=== PATIENT | female | born 1940 | race Hispanic/Latino ===

== ENCOUNTER 2017-09-18 15:52 | Outpatient (CLI) | payer MEDICARE, MEDICAID ==
--- NOTE | 2017-09-18 18:54 | RAD ---
CHEST TWO VIEW 09/18/17 HISTORY: Exertional dyspnea. COMPARISON: None FINDINGS: There is mild cephalization of the pulmonary vasculature. Mild prominence of the pulmonary arteries. No pneumothorax or large effusion. The bones are osteopenic. No compression fracture is appreciated . Heart size upper limits of normal with increased mediastinal fat. IMPRESSION: 1. Mild cardiomegaly with pulmonary venous congestion. 2. Dilatation of the pulmonary arteries suggests pulmonary arterial hypertension. 3. Increased mediastinal fat. POS: [facility]
[2017-09-19 20:47] LABS: ALT (SGPT) 17 U/L (8-55); AST (SGOT) 20 U/L (5-34); Albumin 4.1 g/dL (3.4-4.8); Alkaline Phosphatase 173 U/L (40-150); Anion Gap 15 mmol/L (10-20); BUN (Urea Nitrogen) 18 mg/dL (9.8-20.1); Bilirubin, Total 0.3 mg/dL (0.2-1.2); Calc. Creatinine Clearance 0 mL/min (70-130); Calcium 9.6 mg/dL (7.8-10.44); Carbon Dioxide 24 mmol/L (23-31); Chloride 106 mmol/L (98-107); Estimated GFR-MDRD 79; Globulin 3.5 g/dL (2.4-3.5); Glucose 84 mg/dL (83-110); Potassium 4.1 mmol/L (3.5-5.1); Protein, Total 7.6 g/dL (6.0-8.3); Sodium 141 mmol/L (136-145)
[2017-09-19 20:48] LABS: Thyroid Stimulating Hormone 0.802 uIU/mL (0.35-4.94); Vitamin D, 25 Hydroxy 12.1 ng/ml (> 30.0)
[2017-09-19 20:54] LABS: #Lymphocytes 2.4 thou/uL (1.20-3.40); #Monocytes 0.4 thou/uL (0.11-0.59); #Neutrophils 3.5 thou/uL (1.40-6.50); %Basophils 0.3 % (0.0-1.0); %Eosinophils 0.6 % (0.0-10.0); %Lymphocytes 38.1 % (21.0-51.0); %Monocytes 5.7 % (0.0-10.0); %Neutrophils 55.3 % (42.0-75.0); Hemoglobin 13.3 g/dL (12.0-16.0); Mean Corpuscular HGB CONC 33.4 g/dL (32.0-36.0); Mean Corpuscular Hemoglobin 30.7 pg (27.0-31.0); Mean Corpuscular Volume 91.8 fl (81.0-99.0); Mean Platelet Volume 7.7 fL (7.4-10.4); Platelet Count 223 thou/uL (130-400); Red Blood Cell (RBC) Count 4.32 mill/uL (4.20-5.40); White Blood Cell (WBC) Count 6.3 thou/uL (4.8-10.8)
[2017-09-19 21:14] LABS: Hemoglobin A1c 5.2 % (4.0-6.0)
== END 2017-09-18 15:53 | disposition home or self-care (01) ==
LOC: MADLABBHPM 15:52
PROVIDERS: ATTEND Family Medicine
DX: R06.09 Other forms of dyspnea (principal); M19.90 Unspecified osteoarthritis, unspecified site; I51.7 Cardiomegaly; I28.1 Aneurysm of pulmonary artery; E65 Localized adiposity; R53.83 Other fatigue; R09.89 Other specified symptoms and signs involving the circulatory and respiratory systems
CPT/HCPCS: 36415; 71020; 80053; 82306; 83036; 84443; 85025; 93005; 93010

== ENCOUNTER 2018-04-19 09:27 | Outpatient (CLI) | payer MEDICARE, MEDICAID ==
--- NOTE | 2018-04-19 10:56 | RAD ---
CHEST 2 VIEWS: Date: 04/19/18 COMPARISON: 09/18/17. HISTORY: Recurrent cough. FINDINGS: Atherosclerosis of aorta. Normal cardiac silhouette. Pulmonary vessels are within normal limits. Cost ophrenic angles are clear. Chronic changes in lung parenchyma. No consolidation or mass. No pneumotho rax or osseous abnormalities. IMPRESSION: 1. Atherosclerosis. 2. No acute cardiopulmonary process. POS: [facility]
--- NOTE | 2018-04-19 11:02 | RAD ---
LUMBAR SPINE 3 VIEWS: Date: 04/19/18 HISTORY: Low back pain. COMPARISON: None. FINDINGS: There are five lumbar-type vertebral bodies. There is diffuse bone demineralization. Lumbar spine miguel tebral body height is maintained. No fracture. No spondylolisthesis or spondylolysis. Mild degenerati ve changes of posterior elements along the right aspect are noted at L4-L5 and L5-S1. IMPRESSION: Mild degenerative changes. No evidence of fracture. POS: [facility]
--- NOTE | 2018-04-19 11:03 | RAD ---
RIGHT HIP 2 VIEWS: Date: 04/19/18 HISTORY: Joint pain. COMPARISON: None. FINDINGS: Joint space preserved. No evidence of fracture or dislocation. Right hip is unremarkable. IMPRESSION: No significant degenerative change. POS: [facility]
--- NOTE | 2018-04-19 11:15 | RAD ---
LEFT HIP TWO VIEWS: HISTORY: Left hip pain. COMPARISON: None. FINDINGS: Two views of the left hip show no evidence of acute fracture or dislocation. No degenerative change is seen. An injection granuloma is seen in the left gluteal region. IMPRESSION: No evidence of acute osseous abnormality. POS: [facility]
== END 2018-04-19 09:28 ==
LOC: MADLABBHPM 09:27
PROVIDERS: ATTEND Family Medicine
DX: M25.50 Pain in unspecified joint (principal)
CPT/HCPCS: 36415; 71046; 72100; 83520; 85652; 86200

== ENCOUNTER 2018-10-03 09:12 | Outpatient (CLI) | payer MEDICARE, MEDICAID ==
--- NOTE | 2018-10-03 09:52 | RAD ---
TWO VIEWS OF THE LEFT HAND: DATE: 10/03/2018. PROVIDED CLINICAL HISTORY: Arthritis. FINDINGS: There is no evidence for a fracture or other acute osseous abnormality. Alignment appears anatomic. Joint spaces appear preserved. No erosive changes are seen. Bone mineralization appears normal. T he soft tissues appear radiographically unremarkable. IMPRESSION: No evidence for an acute osseous abnormality or significant arthropathy. POS: [facility]
--- NOTE | 2018-10-03 10:01 | RAD ---
TWO VIEWS RIGHT HAND: Date: 10-03-18 Provided Clinical History: Arthritis. FINDINGS: There is no evidence for fracture or other acute osseous abnormality. There is mild index digit DIP j oint space loss and osteophyte formation. Joint spaces appear otherwise maintained. No erosive change s are seen. Bone mineralization appears normal. The soft tissues appear radiographically unremarkable . IMPRESSION: Minimal degenerative change. POS: [facility]
[2018-10-03 17:35] LABS: HBSAg Index 0.21 S/CO (0-0.99); Hep B Core Total Ab Non-Reactive (NonReactive); Hep B Core Total Index 0.15 S/CO (0-0.79); Hep B Surf Ag Non-Reactive S/CO (NonReactive); Hep C IgG Ab Non-Reactive (NonReactive)
== END 2018-10-03 09:13 | disposition home or self-care (01) ==
LOC: MADLAB 09:12
DX: M19.90 Unspecified osteoarthritis, unspecified site (principal)
CPT/HCPCS: 36415; 85652; 86140; 86704; 86803; 87340

== ENCOUNTER 2019-02-26 20:37 | Emergency (ER) | payer MEDICARE, MEDICAID ==
[2019-02-26] MEDS ORDERED: Sodium Chloride 0.9% 1,000 ML ONE ×2 (21:10→22:25)
[2019-02-26] MEDS ORDERED: Acetaminophen 500 MG TAB ONE (21:10)
[2019-02-26 21:16] LABS: #Basophils 0.1 thou/uL (0.0-0.2); #Lymphocytes 0.7 thou/uL (1.20-3.40); #Monocytes 0.5 thou/uL (0.11-0.59); #Neutrophils 10.8 thou/uL (1.40-6.50); %Basophils 0.5 % (0.0-1.0); %Eosinophils 0.1 % (0.0-10.0); %Lymphocytes 5.7 % (21.0-51.0); %Monocytes 4.3 % (0.0-10.0); %Neutrophils 89.5 % (42.0-75.0); Hemoglobin 11.8 g/dL (12.0-16.0); Mean Corpuscular HGB CONC 32.9 g/dL (32.0-36.0); Mean Corpuscular Hemoglobin 29.5 pg (27.0-31.0); Mean Corpuscular Volume 89.9 fL (78.0-98.0); Mean Platelet Volume 6.2 fL (7.4-10.4); Platelet Count 240 thou/uL (130-400); RBC Distribution Width 13.8 % (11.5-14.5); Red Blood Cell (RBC) Count 3.99 mill/uL (4.20-5.40); White Blood Cell (WBC) Count 12.1 thou/uL (4.8-10.8)
[2019-02-26 21:22] LABS: Bilirubin Small (Negative); Blood, Urine Moderate (Negative); Glucose, Urine (Dipstick) Negative (Negative); Leukocyte Negative (Negative); Nitrite Negative (Negative); Protein, Urine (Dipstick) 30 mg/dL (Neg-Trace); Urobilinogen 0.2 mg/dL (0.2-1.0); pH, Urine 5.5 (5.0-9.0)
[2019-02-26 21:25] LABS: Clarity Hazy (Clear); WBC/HPF 0-3 HPF (0-3)
[2019-02-26 21:26] LABS: Bacteria/HPF None Seen HPF (None Seen)
--- NOTE | 2019-02-26 21:30 | RAD ---
PORTABLE CHEST ONE VIEW: 02/26/19 at 9:10 p.m. HISTORY: Fever, dizziness, diarrhea. FINDINGS: Comparison made with exam of 04/19/18. The heart size is enlarged. The aorta is tortuous. No focal areas of consolidation, pneumothoraces, f rank pulmonary edema or pleural effusions are seen. IMPRESSION: No acute process. POS: [facility]
[2019-02-26 21:34] LABS: ALT (SGPT) 20 U/L (8-55); AST (SGOT) 19 U/L (5-34); Albumin 3.9 g/dL (3.4-4.8); Alkaline Phosphatase 130 U/L (40-150); Anion Gap 15 mmol/L (10-20); BUN (Urea Nitrogen) 16 mg/dL (9.8-20.1); Bilirubin, Total 0.3 mg/dL (0.2-1.2); Calc. Creatinine Clearance 0 mL/min (70-130); Calcium 8.3 mg/dL (7.8-10.44); Carbon Dioxide 22 mmol/L (23-31); Chloride 106 mmol/L (98-107); Estimated GFR-MDRD 62; Globulin 3.1 g/dL (2.4-3.5); Glucose 133 mg/dL (83-110); Potassium 3.9 mmol/L (3.5-5.1); Sodium 139 mmol/L (136-145)
[2019-02-26] MEDS ORDERED: methylPREDNISolone Sod Succ/PF 125 MG/2 ML VIAL ONE (22:25)
[2019-02-26] MEDS ORDERED: Albuterol Sulfate 2.5 mg/3 ml Neb ONE (22:25)
== END 2019-02-26 23:10 | disposition short-term general hospital (02) ==
LOC: MADERS 20:37
DX: J45.909 Unspecified asthma, uncomplicated (principal); I10 Essential (primary) hypertension; Z79.899 Other long term (current) drug therapy
CPT/HCPCS: 51701; 71045; 80053; 81003; 81015; 83605; 83880; 84484; 85025; 87040; 87086; 87804; 93005; 94640; 94760; 96361; 96374; A4353; J2930; J7050; J7611; J7620

== ENCOUNTER 2019-04-17 09:12 | Outpatient (CLI) | payer MEDICARE, OTHER ==
--- NOTE | 2019-04-17 09:37 | RAD ---
FRONTAL AND LATERAL IMAGING CHEST: Date: 04/17/19 COMPARISON: 02/27/19. HISTORY: Cough, history of pneumonia. FINDINGS: Heart and mediastinal contours are stable. There is atherosclerotic calcification of the aortic arch. No pneumothorax or pleural fluid. No focal consolidation or alveolar edema. IMPRESSION: No acute findings. POS: [facility]
== END 2019-04-17 09:13 | disposition home or self-care (01) ==
LOC: MADRAD 09:12
PROVIDERS: ATTEND Family Medicine
DX: J18.9 Pneumonia, unspecified organism (principal)
CPT/HCPCS: 71046

== ENCOUNTER 2020-02-01 10:17 | Emergency (ER) | payer MEDICARE, MEDICAID ==
--- NOTE | 2020-02-01 12:22 | CT ---
CT chest noncontrast CT abdomen noncontrast CT thoracic spine noncontrast HISTORY: Fall. Chest pain. Abdomen pain. Back injury. Abnormal breath sounds. FINDINGS: Lungs are hyperinflated with scattered areas of mild parenchymal scarring. No pneumothorax, pleural fluid, or lobar consolidation. Minimally displaced fractures involve the anterolateral aspects of left ribs 3, 4, and 5 and right ribs 5, 6, and 7. Extensive motion artifact limits evaluat ion of the left mid ribs. Lack of contrast limits evaluation of the soft tissues. No mediastinal hematoma is apparent. There is prominent calcification throughout the arterial structures. Small hiatal hernia is evident. Imaging was carried out through the inferior pole of the kidneys and the aortic bifurcation. The pelv is was not imaged. No free air or free fluid within the abdomen. Solid organs are intact on the noncontrast enhanced study allowing for extensive motion artifact. Vertebral body heights and AP alignment of the thoracic spine maintained. No acute fracture or disloc ation apparent. Minimal leftward convex curvature. Scattered osteophytosis. No acute fracture or dislocation. Motion artifact result in distortion of the sternum. IMPRESSION: Nondisplaced right anterolateral upper to mid rib fractures. No evidence of pneumothorax. Prominent atherosclerosis. Hiatal hernia.
== END 2020-02-01 13:15 | disposition home or self-care (01) ==
LOC: MADERS 10:17
DX: S22.43XA Multiple fractures of ribs, bilateral, initial encounter for closed fracture (principal); I10 Essential (primary) hypertension; J42 Unspecified chronic bronchitis; J45.909 Unspecified asthma, uncomplicated; Z79.899 Other long term (current) drug therapy; M06.9 Rheumatoid arthritis, unspecified; W18.30XA Fall on same level, unspecified, initial encounter; Y93.E1 Activity, personal bathing and showering
CPT/HCPCS: 71250

== ENCOUNTER 2021-09-21 11:03 | Outpatient (CLI) | payer MEDICARE, OTHER ==
[2021-09-21 12:01] LABS: #Eosinphils 0.1 thou/uL (0.0-0.7); #Lymphocytes 1.9 thou/uL (1.20-3.40); #Monocytes 0.4 thou/uL (0.11-0.59); #Neutrophils 4.2 thou/uL (1.40-6.50); %Basophils 0.6 % (0.0-1.0); %Lymphocytes 28.1 % (21.0-51.0); %Monocytes 6.2 % (0.0-10.0); Hemoglobin 12.1 g/dL (12.0-16.0); Mean Corpuscular HGB CONC 31.7 g/dL (32.0-36.0); Mean Corpuscular Hemoglobin 29.2 pg (27.0-31.0); Mean Corpuscular Volume 92.3 fL (78.0-98.0); Platelet Count 218 thou/uL (130-400); RBC Distribution Width 12.2 % (11.5-14.5); Red Blood Cell (RBC) Count 4.14 mill/uL (4.20-5.40); White Blood Cell (WBC) Count 6.6 thou/uL (4.8-10.8)
[2021-09-21 12:17] LABS: ALT (SGPT) Less than 7 U/L (8-55); AST (SGOT) 17 U/L (5-34); Albumin 3.9 g/dL (3.4-4.8); Alkaline Phosphatase 102 U/L (40-110); Anion Gap 11 mmol/L (10-20); BUN (Urea Nitrogen) 16 mg/dL (9.8-20.1); Bilirubin, Total 0.4 mg/dL (0.2-1.2); CRP (Inflammatory) 0.72 mg/dL (= or < 0.5); Calc. Creatinine Clearance 0 mL/min (70-130); Calcium 9.2 mg/dL (7.8-10.44); Carbon Dioxide 26 mmol/L (23-31); Chloride 110 mmol/L (98-107); Globulin 3.2 g/dL (2.4-3.5); Glucose 116 mg/dL (83-110); Protein, Total 7.1 g/dL (5.8-8.1); Sodium 143 mmol/L (136-145)
== END 2021-09-21 11:04 | disposition home or self-care (01) ==
LOC: MADLAB 11:03
DX: M89.49 Other hypertrophic osteoarthropathy, multiple sites (principal)
CPT/HCPCS: 36415; 72170; 80053; 85025; 85652; 86140

== ENCOUNTER 2022-05-17 14:20 | Emergency (ER) | payer MEDICARE, MEDICAID ==
[2022-05-17 15:58] LABS: #Lymphocytes 1.9 thou/uL (1.20-3.40); #Monocytes 0.4 thou/uL (0.11-0.59); #Neutrophils 3.9 thou/uL (1.40-6.50); %Basophils 0.8 % (0.0-1.0); %Eosinophils 0.4 % (0.0-10.0); %Lymphocytes 30.9 % (21.0-51.0); %Monocytes 5.9 % (0.0-10.0); Mean Corpuscular HGB CONC 31.8 g/dL (32.0-36.0); Mean Corpuscular Hemoglobin 28.4 pg (27.0-31.0); Mean Corpuscular Volume 89.3 fL (78.0-98.0); Mean Platelet Volume 9.2 fL (7.4-10.4); Platelet Count 203 thou/uL (130-400); RBC Distribution Width 12.7 % (11.5-14.5); Red Blood Cell (RBC) Count 4.23 mill/uL (4.20-5.40); White Blood Cell (WBC) Count 6.2 thou/uL (4.8-10.8)
[2022-05-17 16:13] LABS: Bilirubin Negative (Negative); Blood, Urine Small (Negative); Clarity Hazy (Clear); Glucose, Urine (Dipstick) Negative (Negative); Ketone, Urine Negative (Negative); Leukocyte Trace (Negative); Nitrite Negative (Negative); Protein, Urine (Dipstick) Negative (Neg-Trace); Specific Gravity, Urine 1.015 (1.005-1.030); Urobilinogen 0.2 mg/dL (Less than 2)
[2022-05-17 16:31] LABS: ALT (SGPT) 21 U/L (8-55); AST (SGOT) 18 U/L (5-34); Alkaline Phosphatase 86 U/L (40-110); Anion Gap 17 mmol/L (10-20); BUN (Urea Nitrogen) 14 mg/dL (9.8-20.1); Bilirubin, Total 0.5 mg/dL (0.2-1.2); Calc. Creatinine Clearance 0 mL/min (70-130); Carbon Dioxide 25 mmol/L (23-31); Chloride 105 mmol/L (98-107); Estimated GFR 82; Globulin 3.3 g/dL (2.4-3.5); Glucose 94 mg/dL (83-110); Potassium 4.1 mmol/L (3.5-5.1); Protein, Total 7.3 g/dL (5.8-8.1); Sodium 143 mmol/L (136-145)
[2022-05-17 16:32] LABS: Bacteria/HPF Rare-Few HPF (None Seen); Squamous Epithelial 0-3 HPF (0-3); WBC/HPF 0-3 HPF (0-3)
== END 2022-05-17 17:32 | disposition home or self-care (01) ==
LOC: MADERS 14:20
DX: B34.9 Viral infection, unspecified (principal); I10 Essential (primary) hypertension; J45.909 Unspecified asthma, uncomplicated; Z79.899 Other long term (current) drug therapy; Z20.822 Contact with and (suspected) exposure to COVID-19
CPT/HCPCS: 36415; 71045; 80053; 81003; 81015; 85025; U0003; U0005